=== PATIENT | female | born 1995 | race Caucasian/White ===

== ENCOUNTER 2017-05-16 20:48 | Emergency (ER) | payer BC ==
[2017-05-16 20:58] VITALS: BP 113/71
--- NOTE | 2017-05-16 21:20 | UC ---
Throat Pain/Nasal Deandre HPI - HPI Summary HPI Summary: 21 yo female with sore throat x 1 day no fever no chills no URI symptoms no myalgia hurts to swallow - History of Current Complaint Chief Complaint: UCGeneralIllness Stated Complaint: THROAT COMPLAINT Time Seen by Provider: 05/16/17 21:09 Hx Obtained From: Patient Hx Last Menstrual Period: 05/15/17 Onset/Duration: Gradual Onset, Lasting Hours Severity: Moderate Pain Intensity: 4 Pain Scale Used: 0-10 Numeric Cough: None - Allergies/Home Medications Allergies/Adverse Reactions: Allergies Allergy/AdvReac Type Severity Reaction Status Date / Time Amoxicillin Allergy Intermediate Hives Verified 05/16/17 20:58 Penicillins Allergy See Comment Verified 05/16/17 20:58 PMH/Surg Hx/FS Hx/Imm Hx Previously Healthy: Yes - has not had mono - Surgical History Surgical History: Yes Surgery Procedure, Year, and Place: 17 MONTHS OLD STITCHES IN TONGUE - Family History Known Family History: Positive: Hypertension - Social History Alcohol Use: Occasionally Substance Use Type: None Smoking Status (MU): Never Smoked Tobacco - Immunization History Vaccination Up to Date: Yes Review of Systems Constitutional: Negative Skin: Negative Eyes: Negative ENT: Sore Throat Respiratory: Negative Cardiovascular: Negative Gastrointestinal: Negative Genitourinary: Negative Motor: Negative Neurovascular: Negative Musculoskeletal: Negative Neurological: Negative Psychological: Negative All Other Systems Reviewed And Are Negative: Yes Physical Exam Triage Information Reviewed: Yes Appearance: Well-Appearing, No Pain Distress, Well-Nourished Vital Signs: Initial Vital Signs Temp 99.8 F 05/16/17 20:55 Pulse 68 05/16/17 20:55 Resp 14 05/16/17 20:55 BP 113/71 05/16/17 20:55 Pulse Ox 100 05/16/17 20:55 Vital Signs Reviewed: Yes Eyes: Positive: Conjunctiva Clear ENT: Positive: Hearing grossly normal, Pharynx normal, TMs normal, Other: - soft palate -scatterred ulceration/exdates. Negative: Nasal congestion, Nasal drainage, Tonsillar swelling, Tonsillar exudate, Trismus, Muffled/hoarse voice Neck: Positive: Supple, Enlarged Nodes @ - ant cervical Respiratory: Positive: Lungs clear, Normal breath sounds, No respiratory distress, No accessory muscle use Cardiovascular: Positive: RRR, No Murmur Abdomen Description: Positive: Nontender, No Organomegaly, Soft. Negative: Hepatomegaly, Splenomegaly Musculoskeletal: Positive: ROM Intact, No Edema Neurological: Positive: Alert Psychological Exam: Normal Skin: Positive: rashes Throat Pain/Nasal Course/Dx - Differential Dx/Diagnosis Provider Diagnoses: pharyngitis Discharge - Discharge Plan Condition: Stable Disposition: HOME Patient Education Materials: Pharyngitis (ED) Referrals: Pravin Olivares MD [Primary Care Provider] - Additional Instructions: strep test negative advil or aleve you can get mylanta and benadryl elixer and mix it 50/50 take 2-3 tablespoons and swish in your mouth as long as you can stand it then spit it out this will help numb things recheck in 4 days if not better
== END 2017-05-16 21:25 | disposition home or self-care (01) ==
LOC: UCCORT 20:48
DX: J02.9 Acute pharyngitis, unspecified (principal)
CPT/HCPCS: 87651; 99211; G0463

== ENCOUNTER 2017-06-09 09:11 | Emergency (ER) | payer BC ==
[2017-06-09 09:28] VITALS: BP 114/69
--- NOTE | 2017-06-09 09:40 | UC ---
Throat Pain/Nasal Deandre HPI - HPI Summary HPI Summary: sore throat x 4 days no fever, no chills, no nasal congestion or cough no fatigue, - History of Current Complaint Chief Complaint: UCGeneralIllness Stated Complaint: [place] GL[place]S,SORE THROAT Time Seen by Provider: 06/09/17 09:15 Hx Obtained From: Patient Hx Last Menstrual Period: 05/14/17 ?: No Onset/Duration: Gradual Onset, Lasting Days - 4, Still Present Severity: Moderate Cough: None Associated Signs & Symptoms: Negative: Sinus Discomfort, Nasal Discharge, Fever , Vomiting, Rash - Allergies/Home Medications Allergies/Adverse Reactions: Allergies Allergy/AdvReac Type Severity Reaction Status Date / Time Amoxicillin Allergy Intermediate Hives Verified 06/09/17 09:20 Penicillins Allergy See Comment Verified 06/09/17 09:20 PMH/Surg Hx/FS Hx/Imm Hx Previously Healthy: Yes - Surgical History Surgical History: Yes Surgery Procedure, Year, and Place: 17 MONTHS OLD STITCHES IN TONGUE - Family History Known Family History: Positive: Hypertension - Social History Alcohol Use: Occasionally Substance Use Type: None Smoking Status (MU): Never Smoked Tobacco - Immunization History Vaccination Up to Date: Yes Review of Systems Constitutional: Negative Skin: Negative Eyes: Negative ENT: Sore Throat Respiratory: Negative Cardiovascular: Negative Gastrointestinal: Negative Genitourinary: Negative All Other Systems Reviewed And Are Negative: Yes Physical Exam Triage Information Reviewed: Yes Appearance: Well-Appearing, No Pain Distress, Well-Nourished Vital Signs: Initial Vital Signs Temp 98.4 F 06/09/17 09:17 Pulse 96 06/09/17 09:17 Resp 16 06/09/17 09:17 BP 114/69 06/09/17 09:17 Pulse Ox 98 06/09/17 09:17 Vital Signs Reviewed: Yes Eye Exam: Normal Eyes: Positive: Conjunctiva Clear ENT: Positive: Normal ENT inspection, Hearing grossly normal, Pharyngeal erythema, TMs normal, Tonsillar swelling, Tonsillar exudate, Trismus. Negative : Nasal congestion, Nasal drainage Neck: Positive: Enlarged Nodes @ Respiratory: Positive: Chest non-tender, Lungs clear, Normal breath sounds Cardiovascular: Positive: RRR, No Murmur, Pulses Normal Abdominal Exam: Normal Abdomen Description: Positive: Nontender, No Organomegaly, Soft. Negative: CVA Tenderness (R), CVA Tenderness (L), Distended Bowel Sounds: Positive: Present Throat Pain/Nasal Course/Dx - Differential Dx/Diagnosis Provider Diagnoses: pharyngitis Discharge - Discharge Plan Condition: Stable Disposition: HOME Prescriptions: Azithromycin TAB* [Zithromax TAB (Z-ROME) 250 mg #6 tabs] 2 tab PO .TODAY, THEN 1 DAILY #1 rome predniSONE TAB* [Deltasone TAB*] 40 mg PO DAILY #10 tab Patient Education Materials: Pharyngitis (ED) Referrals: No Primary Care Phys,NOPCP [Primary Care Provider] - 7 Days Additional Instructions: will check for Rincon start abx , call the office in one day for the mono results, if positive may stop the abx and cont. with Prednisone, rest and no contact sports for 4 to 6 weeks if negative mono will have you cont. with the abx.
[2017-06-09 14:35] LABS: EBV Response YES
[2017-06-09 14:55] LABS: Mono Internal Control QC Line Present
--- NOTE | 2017-06-10 07:52 | UC ---
Progress - Progress Note Progress Note: Please advise that monospot is positive. She can stop the zithromax and continue steroids.
== END 2017-06-09 10:00 | disposition home or self-care (01) ==
LOC: UCCORT 09:11
DX: J02.9 Acute pharyngitis, unspecified (principal); Z88.3 Allergy status to other anti-infective agents; Z88.0 Allergy status to penicillin
CPT/HCPCS: 36415; 86308; 87651; 99212; G0463

== ENCOUNTER 2017-07-29 08:14 | Emergency (ER) | payer BC ==
[2017-07-29 08:24] VITALS: BP 114/71
[2017-07-29] MEDS ORDERED: cefTRIAXone VIAL(*) 1,000 MG VIAL IM ONE (08:35)
[2017-07-29] MEDS ORDERED: methylPREDNISolone 125 MG* 2 ML VIAL IM ONE (08:35)
[2017-07-29] MEDS ORDERED: Lidocaine 1% MPF* 2 ML VIAL INJ ONE (08:35)
--- NOTE | 2017-07-29 08:41 | UC ---
Epistaxis Nasal HPI - HPI Summary HPI Summary: Patient started to have right jaw pain 3 days ago, it moved under the right eye and then today her nose is swollen, purulent drainage, turbids are red swollen and blocking off the nasal passages. nose is painful to touch, has not affected her eyes, no dental issues in the past., hard to open her jaw fully. - History of Current Complaint Chief Complaint: UCRespiratory Stated Complaint: RIGHT SIDE JAW/SINUS PAIN Time Seen by Provider: 07/29/17 08:17 Hx Obtained From: Patient Hx Last Menstrual Period: 06/29/17 ?: No Onset/Duration: Sudden Onset, Lasting Days Timing: Constant Severity Initially: Mild Severity Currently: Severe Alleviating Factor(s): Nothing - Allergies/Home Medications Allergies/Adverse Reactions: Allergies Allergy/AdvReac Type Severity Reaction Status Date / Time Amoxicillin Allergy Intermediate Hives Verified 07/29/17 08:18 Penicillins Allergy See Comment Verified 07/29/17 08:18 Home Medications: Home Medications Ibuprofen [Advil] 400 mg PO Q4H PRN 07/29/17 [History Confirmed 07/29/17] [id number] [Mucinex Fast-Max Day/Nigh] 2 cap PO BID PRN [History Confirmed 07/29/17] PMH/Surg Hx/FS Hx/Imm Hx Previously Healthy: Yes - Surgical History Surgical History: Yes Surgery Procedure, Year, and Place: 17 MONTHS OLD STITCHES IN TONGUE - Family History Known Family History: Positive: Hypertension - Social History Alcohol Use: Occasionally Substance Use Type: None Smoking Status (MU): Never Smoked Tobacco - Immunization History Vaccination Up to Date: Yes Review of Systems Constitutional: Fever, Fatigue Skin: Negative Eyes: Eye Redness ENT: Sore Throat, Nasal Discharge, Sinus Congestion, Sinus Pain/Tenderness Respiratory: Cough Cardiovascular: Negative Gastrointestinal: Negative Genitourinary: Negative Motor: Negative Neurovascular: Negative Musculoskeletal: Negative Neurological: Headache Psychological: Negative Is Patient Immunocompromised?: No All Other Systems Reviewed And Are Negative: Yes Physical Exam Triage Information Reviewed: Yes Appearance: Well-Nourished, Ill-Appearing, Pain Distress Vital Signs: Initial Vital Signs Temp 99.6 F 07/29/17 08:20 Pulse 119 07/29/17 08:20 Resp 16 07/29/17 08:20 BP 114/71 07/29/17 08:20 Pulse Ox 100 07/29/17 08:20 Vital Signs Reviewed: Yes Eye Exam: Normal Eyes: Positive: Conjunctiva Inflamed ENT: Positive: Pharynx normal, Nasal congestion, Nasal drainage, TMs normal Dental Exam: Normal Neck exam: Normal Neck: Positive: Supple, Nontender, No Lymphadenopathy Respiratory Exam: Normal Respiratory: Positive: Chest non-tender, Lungs clear, Normal breath sounds Cardiovascular Exam: Normal Cardiovascular: Positive: No Murmur, Pulses Normal, Tachycardia Abdominal Exam: Normal Abdomen Description: Positive: Nontender, No Organomegaly, Soft Bowel Sounds: Positive: Present Musculoskeletal Exam: Normal Musculoskeletal: Positive: Strength Intact, ROM Intact, No Edema Neurological Exam: Normal Neurological: Positive: Alert, Muscle Tone Normal Psychological Exam: Normal Skin Exam: Normal Epistaxis Nasal Course/Dx - Course Course Of Treatment: hx obtained, exam performed ,meds reviewed, IM rocephin and soulmedrol given. wound culture obtained from the nose, recommend follow up with PCP in 2 days, sooner if not improving. - Differential Dx/Diagnosis Differential Diagnosis/HQI/PQRI: Allergic Rhinitis, Polyps, Sinusitis, Other Provider Diagnoses: RHinosinusitis. right maxillary sinusitis Discharge - Discharge Plan Condition: Stable Disposition: HOME Patient Education Materials: Sinusitis (ED), Warm Compress or Soak (ED) Additional Instructions: 1. you received a shot of steroids to help reduce the inflammation, you also received a dose of Rocephin which is an antibiotic. 2. Take the antibiotic as prescribed. 3. Warm compresses to the nose. 4. Rest, follow up with Dr Carey in the next 2 days, sooner if you develop more pain, or difficulty breathing. 5. continue with ibuprofen for pain and swelling
== END 2017-07-29 09:30 | disposition home or self-care (01) ==
LOC: UCCORT 08:14
DX: J32.0 Chronic maxillary sinusitis (principal); Z88.0 Allergy status to penicillin; Z88.1 Allergy status to other antibiotic agents
CPT/HCPCS: 87070; 96372; 99212; G0463; J0696; J2930

== ENCOUNTER 2017-08-10 16:31 | Emergency (ER) | payer BC ==
[2017-08-10 16:41] VITALS: BP 125/76
[2017-08-10] MEDS ORDERED: predniSONE TAB* 20 MG PO ONE (16:56)
--- NOTE | 2017-08-10 17:16 | UC ---
Throat Pain/Nasal Deandre HPI - HPI Summary HPI Summary: Pt presents with c/o of nasal swelling and difficulty breathing through her nose. Pt was recently treated for sinus infection with cephalexin and oral steroids. Pt stated that the swelling did improve but has returned. Pt denies SOB or difficulty breathing. does report difficulty with patent nasal airway. Pt is sitting comfortably on exam table in no acute distress. Pt had nose ring placed 6 months ago, nasal passage swelling began 3 weeks ago. - History of Current Complaint Chief Complaint: UCGeneralIllness Stated Complaint: SINUS Time Seen by Provider: 08/10/17 16:38 Hx Obtained From: Patient Hx Last Menstrual Period: 07/31/17 ?: No Onset/Duration: Gradual Onset, Lasting Days Severity: Moderate Associated Signs & Symptoms: Positive: Sinus Discomfort - Epiglottits Risk Factors Epiglottis Risk Factors: Negative - Allergies/Home Medications Allergies/Adverse Reactions: Allergies Allergy/AdvReac Type Severity Reaction Status Date / Time Amoxicillin Allergy Intermediate Hives Verified 08/10/17 16:41 Penicillins Allergy See Comment Verified 08/10/17 16:41 PMH/Surg Hx/FS Hx/Imm Hx Previously Healthy: Yes - Surgical History Surgical History: Yes Surgery Procedure, Year, and Place: STITCHES IN TONGUE WHEN 18 MOS OLD. - Family History Known Family History: Positive: Hypertension - Social History Occupation: Employed Full-time Lives: With Family Alcohol Use: Weekly Substance Use Type: None Smoking Status (MU): Never Smoked Tobacco Have You Smoked in the Last Year: No - Immunization History Vaccination Up to Date: Yes Review of Systems Constitutional: Negative Skin: Negative Eyes: Negative ENT: Other - nasal swelling, blocked nasal passage due to swelling of nasal mucosa Respiratory: Negative Cardiovascular: Negative Gastrointestinal: Negative Genitourinary: Negative Motor: Negative Neurovascular: Negative Musculoskeletal: Negative Neurological: Headache Psychological: Negative Is Patient Immunocompromised?: No All Other Systems Reviewed And Are Negative: Yes Physical Exam Triage Information Reviewed: Yes Appearance: Well-Appearing Vital Signs: Initial Vital Signs Temp 99 F 08/10/17 16:34 Pulse 84 08/10/17 16:34 Resp 16 08/10/17 16:34 BP 125/76 08/10/17 16:34 Pulse Ox 100 08/10/17 16:34 Vital Signs Reviewed: Yes Eye Exam: Normal ENT Exam: Other ENT: Positive: Other: - bilateral nasal passage, swelling Neck exam: Normal Respiratory Exam: Normal Cardiovascular Exam: Normal Musculoskeletal Exam: Normal Neurological Exam: Normal Psychological Exam: Normal Skin Exam: Normal Throat Pain/Nasal Course/Dx - Course Course Of Treatment: I spoke to [facility], Dr. Gleason and he accepted pt. I also spoke with Dr. Crystal, as pt requested DR. Crystal, and stated he would see her in his office at 9 am tomorrow. I discussed with the pt the need to seek immediate medical attention if there is any worsening of her condition. Pt verbalized understanding and agreed to plan of care - Differential Dx/Diagnosis Differential Diagnosis/HQI/PQRI: Sinusitis, Other - septal hematoma Provider Diagnoses: septal hematoma Discharge - Discharge Plan Condition: Stable Disposition: HOME Prescriptions: Azithromycin TAB* [Zithromax TAB (Z-ROME) 250 mg #6 tabs] 2 tab PO .TODAY, THEN 1 DAILY #1 rome Patient Education Materials: Nasal Contusion (ED) Referrals: Ernestine Snider MD [Primary Care Provider] - Gerardo Crystal MD [Medical Doctor] - Additional Instructions: Diagnosis: Septal hematoma Image result for septal hematomaemedicine.[place] Nasal septal hematoma is a condition affecting the nasal septum. It can be associated with trauma. Because the septal cartilage has no blood supply of its own and receives all of its nutrients and oxygen from the perichondrium, an untreated septal hematoma may lead to destruction of the septum Please follow up with Dr. Crystal at 9 am tomorrow at [address] [place] [address] [phone] If your symptoms worsen prior to this, you must seek immediate medical care at the closest Emergency Department.
== END 2017-08-10 17:45 | disposition home or self-care (01) ==
LOC: UCCORT 16:31
DX: S00.33XA Contusion of nose, initial encounter (principal); X58.XXXA Exposure to other specified factors, initial encounter; Y92.9 Unspecified place or not applicable; Z88.0 Allergy status to penicillin
CPT/HCPCS: 99212; G0463; J7512

== ENCOUNTER 2018-02-04 13:54 | Emergency (ER) | payer BC ==
[2018-02-04 14:11] VITALS: BP 130/76
[2018-02-04] MEDS ORDERED: Acetaminophen TAB* 325 MG PO ONE (14:53)
--- NOTE | 2018-02-04 15:09 | UC ---
Abdominal Pain Female HPI - HPI Summary HPI Summary: Pt presents with mom stating at noon developed sudden onset lower abd pain. Pt states sharp and crampy. Pt with some radiation to midback b/l + nausea, no vomiting. pt took motrin with mild improvement. pt with diarrhea x 2 - no blood , no black. Pt with current menses. No h/o similar. Mom with h/o renal colic. No urinary urgency, frequency, dysuria. No vaginal discharge, itching, odor. Pt with temp 99.4 - mom states this is fever, pt with baseline temp 96. no cough, cp, sob. No head congestion. Pt did not get a flu vaccine. No sick contacts at home - pt is a student a [employer] Pt's medications reviewed this visit. - History of Current Complaint Chief Complaint: UCAbdominalPain Stated Complaint: ABDOMINAL PAIN Time Seen by Provider: 02/04/18 14:36 Hx Obtained From: Patient Hx Last Menstrual Period: 02/02/18 ?: No Onset/Duration: Sudden Onset Severity Initially: Mild Severity Currently: Moderate Pain Intensity: 8 - pain wax/wane - does not resolve Pain Scale Used: 0-10 Numeric Location: Suprapubic, Other - b/l pelvic, slight R>L Radiates to: Back Character: Aching, Sharp Aggravating Factor(s): Nothing Alleviating Factor(s): OTC Analgesics Associated Signs and Symptoms: Positive: Nausea, Diarrhea Allergies/Adverse Reactions: Allergies Allergy/AdvReac Type Severity Reaction Status Date / Time amoxicillin Allergy Unknown Hives Verified 02/04/18 15:31 Penicillins Allergy Unknown Hives Verified 02/04/18 15:31 PMH/Surg Hx/FS Hx/Imm Hx Previously Healthy: Yes - Surgical History Surgical History: Yes Surgery Procedure, Year, and Place: STITCHES IN TONGUE WHEN 18 [address] OLD. HEMATOMA REMOVED FROM NOSE - Family History Known Family History: Positive: Hypertension - Social History Occupation: Student Lives: With Family Alcohol Use: Occasionally Substance Use Type: None Smoking Status (MU): Never Smoked Tobacco Have You Smoked in the Last Year: No - Immunization History Vaccination Up to Date: Yes Review of Systems Constitutional: Fever Respiratory: Negative Gastrointestinal: Diarrhea, Nausea Genitourinary: Negative All Other Systems Reviewed And Are Negative: Yes Physical Exam Triage Information Reviewed: Yes Appearance: Well-Appearing, Pain Distress - mild - easily changes position, lying to sitting, sitting to standing. getting onto examination table Vital Signs: Initial Vital Signs Temp 99.1 F 02/04/18 14:07 Pulse 70 02/04/18 14:07 Resp 18 02/04/18 14:07 BP 130/76 02/04/18 14:07 Pulse Ox 100 02/04/18 14:07 Eye Exam: Normal Eyes: Positive: Conjunctiva Clear ENT Exam: Normal ENT: Positive: Hearing grossly normal Dental Exam: Normal Neck exam: Normal Neck: Positive: Supple, Nontender, No Lymphadenopathy Respiratory Exam: Normal Respiratory: Positive: Chest non-tender, Lungs clear, Normal breath sounds, No respiratory distress, No accessory muscle use Cardiovascular Exam: Normal Cardiovascular: Positive: RRR, No Murmur, Pulses Normal Abdomen Description: Positive: Other: - Pt with mild diffuse tender. Increased discomfort lower quadrants, R>L - entering pelvic pain. soft + BS/slight Bowel Sounds: Positive: Hyperactive Musculoskeletal Exam: Normal Musculoskeletal: Positive: Strength Intact, ROM Intact, No Edema Neurological Exam: Normal Neurological: Positive: Alert, Muscle Tone Normal Psychological Exam: Normal Psychological: Positive: Normal Response To Family Skin Exam: Normal Diagnostics - Radiology No standard instances Radiology Interpretation Completed By: Radiologist - Patient Name: CHARIS LANDON Medical Record#: [id number] Ordering Physician: Lenora Hutchinson MD Acct.#: [id number] : 1995 Age: 22 Sex: F Location: [facility] Exam Date: 02/04/18 1455 ADM Status: REG ER Order Information: US PELVIC Accession Number: [id number] CPT: 67029 HISTORY: The lower pelvic pain COMPARISONS: None TECHNIQUE: Multiple transverse and longitudinal ultrasound images were obtained of the pelvis using grayscale, color Doppler, and spectral Doppler imaging using the transabdominal transducer. FINDINGS: UTERUS: The uterus measures 6.3 x 3.6 x 4.4 cm. The uterus is normal in shape, size, contour , and echotexture. ENDOMETRIUM: The endometrial stripe is smooth. The endometrium measures 0.4 cm in thickness. CUL-DE-SAC: There is small amount of free fluid within the pelvis along the left adnexa. RIGHT OVARY: The right ovary measures 2.7 x 2.1 x 2.9 cm. There is a 1.3 x 0.9 x 1.3 cm simple cyst of the right ovary. Normal arterial and venous waveforms are identifiable within the ovary on spectral Doppler imaging. LEFT OVARY: The left ovary measures 3.4 x 2.3 x 2.4 cm. Normal arterial and venous waveforms are identifiable within the ovary on spectral Doppler imaging. BLADDER: The bladder is not well visualized. OTHER: None IMPRESSION: 1. NO SONOGRAPHIC FEATURES OF TORSION. PLEASE NOTE THAT PARTIAL OR INTERMITTENT TORSION MAY BE SONOGRAPHICALLY NORMAL. 2. 1.3 CENTIMETER SIMPLE CYST OF THE RIGHT OVARY. 3. SMALL AMOUNT OF FLUID WITHIN THE LEFT HEMIPELVIS. THIS MAY BE PHYSIOLOGIC WITHIN A REPRODUCTIVE AGE FEMALE. < Electronically signed by Santhosh Rodriguez MD in [place]> 02/04/18 1522 Dictated By: Santhosh Rodriguez MD Dictated Date/Time: 02/04/18 1522 Transcribed Date/ Time: 02/04/18 1521 Re-Evaluation - Re-Evaluation First Eval Change: Improved - Pt states pain stable, no increased sharp pain episodes and no diarrhea at uc reviewed with pt urine, pregn, u/s (pt with menses) no change to repeat abominal pain. REviewed with pt dfferential - low suspicion for appendicitis - pain diffuse and sudden. d/w pt pro/cons CT, ED transfer - After dicussion, pt will go home clears motrin/apap If pain is poorly controlled, uncontrolled fevers or other concerns - pt will go to ED or return for eval pt and mom comfortable and in agreement with plan return precautions closely discussed Abd Pain Female Course/Dx - Course Course Of Treatment: Pt with sudden development of lower abdominal discomfort, cramping, and diarrhea with nausea at noon. Pt with mild radiation to back. differential includes: , cyst, influenza, renal colic, gastroenteritis , early appendicitis. I discussed all with pt and mother. Low suspicion for appenditis and renal colic. Will check urine, hcg, and ultrasound. Will swab for flu. APAP. close reassessment - Differential Dx/Diagnosis Provider Diagnoses: abdominal pain. acute n/v/d Discharge - Sign-Out/Discharge Documenting (check all that apply): Discharge - Discharge Plan Condition: Stable Disposition: HOME Patient Education Materials: Acute Nausea and Vomiting (ED), Acute Diarrhea (ED ), Acute Abdominal Pain (ED) Forms: *Gen. Provider Communication, *School Release Referrals: Ernestine Snider MD [Primary Care Provider] - Additional Instructions: - For the first 6 hours, eat and drink clears (water, tayo cande, soup broth, jello, popsicles, Gatorade). If you tolerate this okay, add bland foods such as dry toast, scrambled eggs, crackers. Wait until you are feeling better for 24 hours before eating spicy food, acidic food, tomato based food, fried food. - Okay to alternate ibuprofen (Advil, Motrin) 600mg and Tylenol every 3 hours for pain or fever. Take with food. Do NOT take for more than 4-5 days. - get plenty of restful sleep - If this is the "stomach bug" these infections are spread by oral secretions. Do not share eating or drinking utensils. Frequent hand washing is important. Clean items that may get your secretions on them such as cell phones, ipads, computer mouse, television remotes. Once you start to feel better, change your pillowcase and your toothbrush Return to the Emergency Department if your symptoms persist or worsen, especially if you experience severe increase in pain, shortness of breath, chest pain, headache, changes in vision, nausea, vomiting, fever, numbness, inability to walk, inability to eat or drink, uncontrolled fever or any other concerns. - Billing Disposition and Condition Condition: STABLE Disposition: HOME
--- NOTE | 2018-02-04 15:25 | RAD ---
HISTORY: The lower pelvic pain COMPARISONS: None TECHNIQUE: Multiple transverse and longitudinal ultrasound images were obtained of the pelvis using grayscale, color Doppler, and spectral Doppler imaging using the transabdominal transducer. FINDINGS: UTERUS: The uterus measures 6.3 x 3.6 x 4.4 cm. The uterus is normal in shape, size, contour, and echotexture. ENDOMETRIUM: The endometrial stripe is smooth. The endometrium measures 0.4 cm in thickness. CUL-DE-SAC: There is small amount of free fluid within the pelvis along the left adnexa. RIGHT OVARY: The right ovary measures 2.7 x 2.1 x 2.9 cm. There is a 1.3 x 0.9 x 1.3 cm simple cyst of the right ovary. Normal arterial and venous waveforms are identifiable within the ovary on spectral Doppler imaging. LEFT OVARY: The left ovary measures 3.4 x 2.3 x 2.4 cm. Normal arterial and venous waveforms are identifiable within the ovary on spectral Doppler imaging. BLADDER: The bladder is not well visualized. OTHER: None IMPRESSION: 1. NO SONOGRAPHIC FEATURES OF TORSION. PLEASE NOTE THAT PARTIAL OR INTERMITTENT TORSION MAY BE SONOGRAPHICALLY NORMAL. 2. 1.3 CENTIMETER SIMPLE CYST OF THE RIGHT OVARY. 3. SMALL AMOUNT OF FLUID WITHIN THE LEFT HEMIPELVIS. THIS MAY BE PHYSIOLOGIC WITHIN A REPRODUCTIVE AGE FEMALE.
== END 2018-02-04 15:49 | disposition home or self-care (01) ==
LOC: UCCORT 13:54
DX: R10.30 Lower abdominal pain, unspecified (principal); R11.2 Nausea with vomiting, unspecified; R19.7 Diarrhea, unspecified; N83.291 Other ovarian cyst, right side; Z32.02 Encounter for pregnancy test, result negative; Z88.3 Allergy status to other anti-infective agents; Z88.0 Allergy status to penicillin
CPT/HCPCS: 76856; 81003; 84702; 87502; 99212; A9270-GY; G0463

== ENCOUNTER 2019-10-12 20:08 | Emergency (ER) | payer BC ==
[2019-10-12 20:24] VITALS: BP 116/75
[2019-10-12] MEDS ORDERED: Ibuprofen TAB* 400 MG PO ONE (21:16)
--- NOTE | 2019-10-12 21:57 | UC ---
Abdominal Pain Female HPI - HPI Summary HPI Summary: 24 y/o female presents to the urgent care c/o LLQ abdominal pain for the past week. Pain started intermittent and now it is more constant radiating to her lower back. Pain is 5/10 now and she took Advil PO last night, nothing today. Pt states she had B/L pelvic pain in last 02/2019 and had an US done and It was only positive for an small ovarian cyst in the Rt ovary, but nothing in the left side. Pt has experienced today frequency on urination, but not burning. She has been eating well and drinking fluids. Pt denies fever, flank pain, vaginal discharge, hematuria, Hx of STD's, IBARRA, dizziness, SOB, chest pain, N/V/ D. LMP: 09/28/2019, no Hx of kidney stones. - History of Current Complaint Chief Complaint: UCAbdominalPain Stated Complaint: LOWER LEFT ABD PAIN X 1 WEEK Time Seen by Provider: 10/12/19 21:04 Hx Obtained From: Patient Hx Last Menstrual Period: 09/28/19 ?: No Onset/Duration: Gradual Onset, Lasting Weeks - 1 week, Still Present, Worse Since - yesterday Severity Initially: Mild Severity Currently: Moderate Pain Intensity: 5 Pain Scale Used: 0-10 Numeric Location: Discrete At: LLQ Radiates: Yes Radiates to: Back - left lower back Character: Sharp Aggravating Factor(s): Nothing Alleviating Factor(s): OTC Analgesics Associated Signs and Symptoms: Positive: Back Pain - left lwoer back pain, Urinary Symptoms - frequency on uriantion today. Negative: Constipation, Blood in Stool, Vaginal Bleeding, Vaginal Discharge, Vomiting - Risk Factors Ectopic Risk Factor: Negative Ovarian Torsion Risk Factor: Negative Allergies/Adverse Reactions: Allergies Allergy/AdvReac Type Severity Reaction Status Date / Time amoxicillin Allergy Unknown Hives Verified 10/12/19 20:24 Penicillins Allergy Unknown Hives Verified 10/12/19 20:24 PMH/Surg Hx/FS Hx/Imm Hx Previously Healthy: Yes - Pt denies PMHX - Surgical History Surgical History: Yes Surgery Procedure, Year, and Place: STITCHES IN TONGUE WHEN 18 MOS OLD. HEMATOMA REMOVED FROM NOSE - Family History Known Family History: Positive: Hypertension - Social History Occupation: Employed Full-time Lives: With Family Alcohol Use: Occasionally Substance Use Type: None Smoking Status (MU): Never Smoked Tobacco Have You Smoked in the Last Year: No - Immunization History Vaccination Up to Date: Yes Review of Systems All Other Systems Reviewed And Are Negative: Yes Constitutional: Positive: Negative Skin: Positive: Negative Eyes: Positive: Negative ENT: Positive: Negative Respiratory: Positive: Negative Cardiovascular: Positive: Negative Gastrointestinal: Positive: Abdominal Pain - LLQ abdominal pain Genitourinary: Positive: Negative Motor: Positive: Negative Neurovascular: Positive: Negative Musculoskeletal: Positive: Other: - left lower back pain Neurological: Positive: Negative Psychological: Positive: Negative Is Patient Immunocompromised?: No Physical Exam - Summary Physical Exam Summary: Vital Signs Reviewed: Yes General:Patient is a well developed and nourished who is sitting comfortable in the examining table. Patient is not in any acute respiratory distress. Eyes: Positive: Conjunctiva Clear - PERRLA, EOMI, fundi grossly normal ENT: Positive: Normal ENT inspection, Hearing grossly normal, Pharynx normal, TMs normal Neck: Positive: Supple, Nontender, No Lymphadenopathy Respiratory: Positive: Chest non-tender, Lungs clear, Normal breath sounds, No respiratory distress Cardiovascular: Positive: RRR,S1 and S2 present, No Murmur, Pulses Normal, Brisk Capillary Refill Abdomen Description: Positive: Nontender, Other: - Abd: Flat with no distention. No surface trauma, scars, incisions. hyperactive bowel sounds present in all four quadrants. No tenderness, guarding, rigidity to palpation. No masses palpated, no pulsation in epigastric area. No organomegaly. Negative [place] signs. No periumbilical tenderness. No rebound in the lower quadrants. NT over McBurneys point. Left side suprapubic tenderness with no distension. Good femoral pulses bilaterally. No hernia noted. No CVAT bilaterally. Pelvic: I was assisted by nurse Linda. External genitalia within normal limits. There is no lesions there is no masses noted. Speculum exam: The vaginal malone are within normal limits w/ normal clear vaginal discharge, no lesions or rashes. The cervix is closed with no lesions or masses. There is no CMT's, and no adnexal masses. Sample sent to Lab for Affirm panel and trichomonas. Musculoskeletal: Positive: Strength Intact, ROM Intact, No Edema,FROM in all major joints, no edema, no cyanosis or clubbing. Neuro: Alert and oriented x 3. No acute neurological deficits. Speech is normal. Psychological: WNL Skin: Dry and warm Triage Information Reviewed: Yes Vital Signs: Initial Vital Signs Temp 98.1 F 10/12/19 20:18 Pulse 75 10/12/19 20:18 Resp 16 10/12/19 20:18 BP 116/75 10/12/19 20:18 Pulse Ox 100 10/12/19 20:18 Abd Pain Female Course/Dx - Course Course Of Treatment: 24 y/o female presents to the urgent care c/o LLQ abdominal pain for the past week. Pain started intermittent and now it is more constant radiating to her lower back. Pain is 5/10 now and she took Advil PO last night, nothing today. Pt states she had B/L pelvic pain in last 02/2019 and had an US done and It was only positive for an small ovarian cyst in the Rt ovary, but nothing in the left side. Pt has experienced today frequency on urination, but not burning. She has been eating well and drinking fluids. Pt denies fever, flank pain, vaginal discharge, hematuria, Hx of STD's, IBARRA, dizziness, SOB, chest pain, N/V/ D. LMP: 09/28/2019, no Hx of kidney stones. Hx obtained. PE: Bob - Differential Dx/Diagnosis Differential Diagnosis: Appendicitis, Constipation, Ectopic , Ovarian Cyst, Pelvic Inflammatory Disease, , Renal Colic, Urinary Tract Infection Provider Diagnosis: RLQ abdominal pain Discharge ED - Sign-Out/Discharge Documenting (check all that apply): Patient Departure - D/C home All imaging exams completed and their final reports reviewed: Yes - Discharge Plan Condition: Stable Disposition: HOME Patient Education Materials: Vanda (ED), Acute Abdominal Pain (ED) Referrals: Ernestine Snider MD [Primary Care Provider] - 1 Day Venu Jackson MD [Medical Doctor] - 2 Days Additional Instructions: 1-Please f/u with CHART CLERK and make sure your PAP is negative. Continue taking Ibuprofen Po q6-8hrs prn after meals for pain 2- Pelvic swab Specimen were sent to lab, if anything abnormality you will receive a call from us for further treatment. 3-If you develop severe abdominal pain please go immediately to the ER for further treatment. 4- Please f/u w/ your OBGYN or Urologist Dr Jackson 1-2 days for a pelvic Ultrasound and further treatment. 5- Abdominal CT was negative. - Billing Disposition and Condition Condition: STABLE Disposition: Home
== END 2019-10-12 23:11 | disposition home or self-care (01) ==
LOC: UCCORT 20:08
DX: R10.31 Right lower quadrant pain (principal); M54.5 Low back pain; R35.0 Frequency of micturition; N83.201 Unspecified ovarian cyst, right side; R10.2 Pelvic and perineal pain; Z88.0 Allergy status to penicillin
CPT/HCPCS: 74176; 81003; 84702; 87086; 87480; 87510; 87660; 99212; A9270-GY; G0463